=== PATIENT | female | born 1985 | race Caucasian/White ===

== ENCOUNTER → 2018-05-09 14:40 | Outpatient (CLI) | payer SELFPAY ==
[~2018-05-09] VITALS: Ht 157.5 cm; Wt 95.0 kg
[2018-05-09 14:54] VITALS: Ht 157.5 cm; Wt 95.0 kg
[2018-05-09 15:33] LABS: APPEARANCE CLEAR (CLEAR); BILIRUBIN NEGATIVE (NEGATIVE); COLOR YELLOW (YELLOW); GLUCOSE NEGATIVE (NEGATIVE); KETONE NEGATIVE (NEGATIVE); NITRITE NEGATIVE (NEGATIVE); PROTEIN TRACE mg/dL (NEGATIVE); UROBILINOGEN NORMAL (NORMAL)
[2018-05-09 15:34] LABS: EPITHELIAL CELLS 0-5 /hpf (0-5); RED CELLS - URINE 25-50 /hpf (0-5); WHITE CELLS - URINE 0-5 /hpf (0-5)
[2018-05-09 15:35] LABS: BACTERIA FEW /hpf (NONE SEEN); CALCIUM OXALATE CRYSTALS 0-5 /hpf (NONE SEEN)
[2018-05-09 16:22] VITALS: BP 142/96
[2018-05-09 16:23] LABS: HCG SERUM POSITIVE (NEGATIVE)
== END | disposition home or self-care (01) ==
LOC: D.ER 14:40 → D.LDO 14:40 → EDSTATUS 16:34
PROVIDERS: Emergency Medicine
DX: O26.899 Other specified pregnancy related conditions, unspecified trimester (principal); Z3A.00 Weeks of gestation of pregnancy not specified; M54.5 Low back pain